=== PATIENT | male | born 1970 | race Caucasian/White ===

== ENCOUNTER → 2025-08-18 | Outpatient (CLI) | payer MEDICAID, SELFPAY ==
--- NOTE | 2025-08-17 16:30 | LES_PTH ---
PATIENT: KONRAD REDMAN LOC: [facility] U#:[id number] AGE/SX: 55/M ROOM: RE08/18/[address]: Dr. Joel Cortez MD : [id number] BED: DIS: 08/18/2025 SPEC #: [id number] RECD: 08/18/25 10:05 STATUS: DAMIR NORMA #: [id number] KT: 08/17/25 16:[address]: Joel Cortez DEPT: SURGICAL PATHOLOGY RECD BY: Finn Maldonado ENTERED: 08/18/25 11:42 SP TYPE: Lesion OTHR DR: No Primary Care Phys Tissues: A - Eyelid, NOS Procedures: Surgery Specimen Level IV HEADER OPERATION: Right upper lid lesion excision PRE-OP DIAGNOSIS: Right upper lid lesion TISSUE SUBMITTED: A- Right upper eyelid lesion MICROSCOPIC DIAGNOSIS A. Skin, right upper eyelid, excision: - Intradermal melanocytic nevus, irritated. MICROSCOPIC DESCRIPTION Slides are reviewed. GROSS DESCRIPTION A. Received in formalin labeled with the patient's name and date of . Designated as right upper eyelid is a 0.2 x 0.2 x 0.1 cm malave-white firm nodule. Entirely submitted in 1 cassette. [place] 08/18/2025 CPT:68519
== END | disposition home or self-care (01) ==
PROVIDERS: Referring Provider Ophthalmology; Visit Provider Ophthalmology
DX: D22.111 Melanocytic nevi of right upper eyelid, including canthus (principal)
CPT/HCPCS: 88305